=== PATIENT | female | born 1945 | race Caucasian/White ===

== ENCOUNTER → 2017-04-08 | Outpatient (CLI) | payer MEDICARE, OTHER ==
--- NOTE | 2017-04-08 14:04 | KCIC ---
Examination: CT maxillofacial bones without contrast HISTORY: History of chronic sinusitis COMPARISON: None available TECHNIQUE: Axial CT images of the maxillofacial bones were performed without contrast. Coronal and sagittal reformats are performed Exposure: One or more of the following individualized dose reduction techniques were utilized for this examination: 1. Automated exposure control 2. Adjustment of the mA and/or kV according to patient size 3. Use of iterative reconstruction technique FINDINGS: The bilateral orbital globes appear intact. Retro-orbital fat is maintained. The visualized frontal sinuses, sphenoid sinuses maxillary sinuses are clear. Minimal mucosal thickening bilateral ethmoidal sinuses. The mastoid air cells are clear. The ostiomeatal complexes are clear. The visualized intracranial portion grossly appears unremarkable. IMPRESSION: 1. Minimal mucosal thickening bilateral ethmoidal sinuses. Otherwise no evidence of sinus disease. Electronically signed by: Marcus Conroy MD (04/08/2017 2:01 PM) [id number]
== END | disposition home or self-care (01) ==
LOC: KCIC CT 13:13
PROVIDERS: ATTEND Otolaryngology
DX: J32.9 Chronic sinusitis, unspecified (principal); I10 Essential (primary) hypertension; E11.9 Type 2 diabetes mellitus without complications; Z79.01 Long term (current) use of anticoagulants
CPT/HCPCS: 70486